=== PATIENT | female | born 1935 | race American Indian/Alaskan Native ===

== ENCOUNTER 2022-10-27 11:05 | Outpatient (CLI) | payer MEDICARE, MEDICAID, SELFPAY | END 2022-10-27 11:06 | disposition home or self-care (01) | LOC: AMB 10-31 10:29 | PROVIDERS: Visit Provider Emergency Medicine Emergency Medical Services | DX: R41.82 Altered mental status, unspecified (principal); R11.2 Nausea with vomiting, unspecified | CPT/HCPCS: A0425; A0427 ==

== ENCOUNTER 2022-10-27 11:28 | Observation (INO) | payer MEDICARE, MEDICAID, SELFPAY ==
[2022-10-27] VITALS (17 sets, daily range): BP systolic 132–160; BP diastolic 52–94; PULSE 73–90; RESP 18–21; TEMP 36.2–36.6; O2SAT 94–100; BMI 23.1; BMI 23.9
--- NOTE | 2022-10-27 11:40 | CRLHL7_ITS ---
For Patients: As a result of the Century Cures Act, medical imaging exams and procedure reports are released immediately into your electronic medical record. You may view this report before your referring provider. If you have questions, please contact your health care provider. INDICATION: Fall. Syncope. COMPARISON: None available. TECHNIQUE: Noncontrast CT head. FINDINGS: Moderate generalized volume loss. Patchy low-attenuation change within the white matter consistent with chronic deep white matter small ischemic changes. No acute intracranial hemorrhage, acute infarct, mass effect, or fracture. No midline shift. Compensatory mild dilatation of ventricular system. Normal calvarium and skull base. Visualized paranasal sinuses and mastoid air cells are clear. Intracranial carotid artery calcifications. Normal orbits bilaterally. IMPRESSION: 1. No acute intracranial abnormality. 2. Moderate generalized volume loss. Chronic deep white matter small vessel ischemic changes Please note that all CT scans at this facility use dose modulation, iterative reconstruction, and/or weight-based dosing when appropriate to reduce radiation dose to as low as reasonably achievable. Dictated by Carlos Lyn MD @ 10/27/2022 1:33:20 PM (Electronically Signed)
--- NOTE | 2022-10-27 11:41 | CRLHL7_ITS ---
For Patients: As a result of the Cures Act, medical imaging exams and procedure reports are released immediately into your electronic medical record. You may view this report before your referring provider. If you have questions, please contact your health care provider. INDICATION: Fall, syncope INDICATION: Syncope, fall. TECHNIQUE: Chest 2 views. COMPARISON: None FINDINGS: Cardiovascular and mediastinum: Heart size and vasculature are normal in caliber and appearance. Mediastinum is within normal limits. Lungs and pleural spaces: Lungs are clear. No sign of infiltrate or mass. No sign of pleural effusion. No pneumothorax. 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 IMPRESSION: Lungs are clear. Dictated by Rigo Cortez MD @ 10/27/2022 1:23:22 PM Dictated by: Rigo Cortez MD @ 10/27/2022 13:23:31 (Electronically Signed)
--- NOTE | 2022-10-27 11:44 | ED_ITS ---
HPI - General Adult General Chief complaint: Nausea/Vomiting Stated complaint: nausea,vomiting Time Seen by Provider: 10/27/22 11:31 Source: patient, family, EMS and RN notes reviewed Mode of arrival: EMS Limitations: no limitations History of Present Illness HPI narrative: Patient is an 87-year-old woman brought in by EMS. She is in town for her daughter's wedding. EMS reported that it was a called out as a stroke, they worked sure what the initial symptoms were, but they arrive several minutes after the 911 call and did not find any focal neurologic symptoms. Her complaint to them was of nausea and some vomiting this morning and feeling fatigued, that is what she complains of to me as well. She says that she just feels generally weak, she denies any focal weakness. Her daughter arrived a little bit later and said that she had what seemed to be a syncopal episode, was briefly unresponsive it on when she woke up her daughter said that her speech seemed a little slurred briefly, but she was able to say where she was and the president [place]. Does not sound like there were any prolonged focal neurologic symptoms. Her daughter does report a remote history of TIA, looking through her medications she has diabetes, high blood pressure, I do not see an anticoagulant. She denies any pain, no headache or neck pain. Her does say that she had a fall yesterday although no direct head injury. She denies chest pain, she says she has had a cough for about a month. No shortness of breath, no fevers. No abdominal pain, diarrhea, black or bloody stools. She reports ongoing nausea, somewhat improved by Zofran given by EMS. No further vomiting. Related Data Home Medications Medication Instructions Recorded Confirmed amlodipine 5 mg tablet 5 mg PO DAILY 10/27/22 10/27/22 aspirin 81 mg tablet,delayed 81 mg PO HS 10/27/22 10/27/22 release benzonatate 100 mg capsule 100 mg PO 3XD PRN cough 10/27/22 10/27/22 cetirizine 10 mg tablet 10 mg PO DAILY 10/27/22 10/27/22 cholecalciferol (vitamin D3) 50 50 mcg PO DAILY 10/27/22 10/27/22 mcg (2,000 unit) capsule (Vitamin D3) cyanocobalamin (vitamin B-12) 1,000 mcg PO DAILY 10/27/22 10/27/22 1,000 mcg tablet diphenhydramine 25 2 tab PO QHS 10/27/22 10/27/22 mg-acetaminophen 500 mg tablet (Tylenol PM Extra Strength) diphenhydramine HCl 25 mg tablet 50 mg PO HS 10/27/22 10/27/22 (Allergy) fluticasone 250 mcg-salmeterol 50 1 inh inhalation HS 10/27/22 10/27/22 mcg/dose blistr powdr for inhalation (Advair Diskus) furosemide 20 mg tablet 10 mg PO DAILY 10/27/22 10/27/22 gabapentin 300 mg capsule 600 mg PO BID 10/27/22 10/27/22 ibuprofen 400 mg tablet 400 mg PO 3XD PRN pain 10/27/22 10/27/22 levothyroxine 88 mcg tablet 88 mcg PO DAILY 10/27/22 10/27/22 lisinopril 10 1 tab PO DAILY 10/27/22 10/27/22 mg-hydrochlorothiazide 12.5 mg tablet loperamide 2 mg capsule 2 mg PO QID PRN diarrhea 10/27/22 10/27/22 metformin 500 mg tablet 500 mg PO BIDWM 10/27/22 10/27/22 omeprazole 20 mg capsule,delayed 20 mg PO DAILY 10/27/22 10/27/22 release Allergies Allergy/AdvReac Type Severity Reaction Status Date / Time No Known Drug Allergies Allergy Verified 10/27/22 11:35 Review of Systems Status of ROS: Reports: 10 or more systems reviewed and unremarkable except as noted in History and below [facility] Medical History Hypothyroidism ?E03.9 - Hypothyroidism, unspecified (ICD-10) Diabetes ?E11.9 - Type 2 diabetes mellitus without complications (ICD-10) Hypertension ?I10 - Essential (primary) hypertension (ICD-10) Social History What is your current living situation?: I presently have a place to live Problems where you live: no known problems Problems where you live details: N/A In the past 12 months, utilities in danger of being shut off: no In the past 12 mos, have been you worried that your food would run out before you had money to buy more?: never true In the past 12 mos, the food you bought just didn't last and you didn't have money to buy more?: never true How often does anyone, including family, friends and others, physically hurt you : never How often does anyone, including family, friends and others, insult or talk down to you: never How often does anyone, including family, friends and others, threaten you with harm: never How often does anyone, including family, friends and others, scream or curse at you: never Exam Narrative: Exam Narrative: Vital signs as noted above. In general, an alert, nontoxic elderly woman, looks somewhat fatigued, breathing easily. Hard of hearing. Head: Normocephalic, atraumatic. Eyes: Pupils are equal reactive. Extraocular movements are full. Conjunctivae are normal. ENT: Mucous membranes are a little dry. Throat is normal. Neck: Supple without lymphadenopathy. Heart: Regular rate and rhythm. No murmur or rub. Lungs: Mostly clear, a few scattered crackles in the right base. No increased work of breathing. No wheezes. Abdomen: Soft and nontender. No organomegaly. Extremities: Well perfused. No edema. No calf tenderness. Pulses intact. Neurologic: Patient is alert and oriented to person and place. Speech is fluent. Face is symmetric. Moves all extremities equally. Affect: Normal. Skin: Warm and dry. Well perfused. Const: Vital Signs, click to edit/add: Vital Signs - 24 hr 10/27/22 11:31 10/27/22 11:42 10/27/22 12:02 Temperature 97.5 F L Pulse Rate 74 Pulse Rate [Right Pulse Oximeter] 73 Respiratory Rate 21 Blood Pressure 156/62 H Blood Pressure [Ri ght Upper Arm] 147/62 H Pulse Oximetry 99 99 98 Oxygen Delivery Me thod Room Air 10/27/22 12:03 10/27/22 12:15 10/27/22 12:45 Temperature Pulse Rate 76 76 78 Pulse Rate [Right Pulse Oximeter] Respiratory Rate Blood Pressure 134/57 L Blood Pressure [Ri ght Upper Arm] Pulse Oximetry 99 96 98 Oxygen Delivery Me thod 10/27/22 12:46 10/27/22 13:00 10/27/22 13:02 Temperature Pulse Rate 74 81 80 Pulse Rate [Right Pulse Oximeter] Respiratory Rate Blood Pressure 145/94 H Blood Pressure [Ri ght Upper Arm] Pulse Oximetry 100 100 98 Oxygen Delivery Me thod 10/27/22 13:15 10/27/22 13:30 10/27/22 13:32 Temperature Pulse Rate 78 80 Pulse Rate [Right Pulse Oximeter] Respiratory Rate Blood Pressure 158/66 H Blood Pressure [Ri ght Upper Arm] Pulse Oximetry 100 99 Oxygen Delivery Me thod 10/27/22 13:36 10/27/22 13:45 Temperature Pulse Rate 79 81 Pulse Rate [Right Pulse Oximeter] Respiratory Rate Blood Pressure 160/67 H Blood Pressure [Ri ght Upper Arm] Pulse Oximetry 99 94 Oxygen Delivery Me thod Documenting provider has reviewed patient's vital signs: yes Course Course Hospital Course: Following initial evaluation, patient had an EKG, which shows by my review normal sinus rhythm, ventricular rate of 74. Normal ST segments, normal T- waves. Overall, symptoms do not sound suggestive of seizure or stroke, it does sound like she probably had a syncopal episode. Diagnostic considerations include acute coronary syndrome, dehydration, ketoacidosis, metabolic derangement, complications of possible head injury, infection. Will give a L of normal saline, labs are pending at this time. Hemodynamically stable, exam is benign. Labs are most notable for a hemoglobin of 8.9, she does not nor baseline but says she has never been told she is anemic. No evidence of microcytosis etcetera, pattern fits more with an acute blood loss. White blood cell count is mildly low O2 at 3, but platelets are normal. Her D-dimer is normal for age at 0.69. Sodium was markedly low at 122, CO2 is 17. Lactate mildly elevated at 2.1. BUN and creatinine are normal. LFTs are unremarkable, CRP less than 0.5. TSH is significantly low and a free T4 is pending. Troponin is 0 and COVID is negative. I had initially ordered a L normal saline, labs suggest she may be somewhat dry. Given symptoms of weakness, nausea, vomiting, I did order for 3% hypertonic saline, 100 mL. I did do a rectal exam, there is light brown stool, fecal occult testing is pending. Coags and type and screen have been added on. She has been hemodynamically stable, no vomiting while here. Neurologically normal. Plan is admission to the hospital for correction of her sodium, trend hemoglobins, hydration. Vital Signs Vital signs: Initial Vital Signs Temperature 97.5 F L 10/27/22 11:31 Temperature Source Temporal Artery Scan 10/27/22 11:31 Pulse Rate 73 10/27/22 11:31 Pulse Rhythm Regular 10/27/22 11:31 Pulse Strength 3+ Normal 10/27/22 11:31 Respiratory Rate 21 10/27/22 11:31 Blood Pressure 147/62 H 10/27/22 11:31 Blood Pressure Mean 90 10/27/22 11:31 Blood Pressure Position Supine 10/27/22 11:31 Pulse Oximetry 99 10/27/22 11:31 Oxygen Delivery Method Room Air 10/27/22 11:31 Vital Signs Temperature 97.5 F L 10/27/22 11:31 Pulse Rate 73 10/27/22 11:31 Respiratory Rate 21 10/27/22 11:31 Blood Pressure 147/62 H 10/27/22 11:31 Pulse Oximetry 99 10/27/22 11:31 Oxygen Delivery Method Room Air 10/27/22 11:31 Temperature 97.2 F L 10/27/22 14:14 Pulse Rate 88 10/27/22 14:14 Respiratory Rate 18 10/27/22 14:14 Blood Pressure 134/52 L 10/27/22 14:14 Pulse Oximetry 97 10/27/22 14:14 Oxygen Delivery Method Room Air 10/27/22 14:14 Medical Decision Making Lab Data Labs: Lab Results 10/27/22 10/27/22 10/27/22 Range/Units 11:41 11:42 11:56 WBC 3.09 L (4.50-11.00) K/uL RBC 2.91 L (4.00-5.20) m/uL Hgb 8.9 L (12.0-16.0) gm/dL Hct 27.1 L (33.0-51.0) % MCV 93 (80-100) fL MCH 31 (26-34) pg MCHC 33 (32-36) gm/dL RDW Coeff of Noah 15.4 (11.5-15.5) % Plt Count 284 (140-440) K/uL Neut % (Auto) 54.1 (42.0-72.0) % Lymph % (Auto) 29.1 (20-44) % [place] % (Auto) 9.7 (0.0-11.0) % Eos % (Auto) 5.8 (0.0-7.0) % Baso % (Auto) 1.0 (0.0-3.0) % Neut # (Auto) 1.70 (1.7-7.0) K/uL Lymph # (Auto) 0.90 (0.90-2.90) K/uL [place] # (Auto) 0.30 (0.00-0.90) K/UL Eos # (Auto) 0.20 (0.00-0.50) K/uL Baso # (Auto) 0.00 (0.00-0.30) K/uL Abs Immat Gran (auto) 0.00 (0.00-0.30) K/uL Imm/Tot Granulo (auto) 0.3 % INR 0.95 (0.91-1.10) APTT 27 (23-33) Seconds D-Dimer Quant (PE/DVT) 0.69 H (0.00-0.50) ug/ml Sodium 122 L* (135-149) mmol/L Potassium 4.8 (3.6-5.1) mmol/L Chloride 95 L (96-114) mmol/L Carbon Dioxide 17 L (20-32) mmol/L BUN 21 (7-30) mg/dL Creatinine 0.9 (0.5-1.5) mg/dL Estimated Creat Clear 38.50 Estimated GFR 63 ml/min Glucose 117 H (60-115) mg/dL Lactate 2.1 H (0.5-1.9) mmol/L Calcium 9.0 (8.4-10.6) mg/dL Total Bilirubin 0.3 (0.1-1.5) mg/dL Direct Bilirubin 0.0 (0.0-0.5) mg/dL AST 27 (12-35) U/L ALT 19 (4-35) U/L Alkaline Phosphatase 63 (40-150) U/L C-Reactive Protein < 0.5 L (0.5-1.0) mg/dL Total Protein 7.2 (6.0-8.3) g/dL Albumin 3.9 (3.3-5.0) g/dL TSH < 0.015 L (0.270-4.200) uIU/mL Free T4 2.31 H (0.70-1.85) ng/dL Urine Color (Yellow) Urine Appearance (Clear) Urine pH (5.0-8.5) Ur Specific [place] (1.000-1.030) Urine Protein (Negative) Urine Glucose (UA) (Negative) Urine Ketones (Negative) Urine Blood (Negative) Urine Nitrite (Negative) Urine Bilirubin (Negative) Urine Urobilinogen (0.2-1.0) Ur Leukocyte Esterase (Negative) Urine RBC (0-2) Urine WBC (0-5) Ur Squamous Epith Cells (None-Few) Amorphous Sediment (None) Urine Bacteria (None) Stool Occult Blood (Negative) SARS-CoV-2 (PCR) Negative SARS-CoV-2 (Negative) POC Troponin I 0.00 L (0.01-0.04) ng/ml Blood Type Antibody Screen 10/27/22 Range/Units 13:32 WBC (4.50-11.00) K/uL RBC (4.00-5.20) m/uL Hgb (12.0-16.0) gm/dL Hct (33.0-51.0) % MCV (80-100) fL MCH (26-34) pg MCHC (32-36) gm/dL RDW Coeff of Noah (11.5-15.5) % Plt Count (140-440) K/uL Neut % (Auto) (42.0-72.0) % Lymph % (Auto) (20-44) % [place] % (Auto) (0.0-11.0) % Eos % (Auto) (0.0-7.0) % Baso % (Auto) (0.0-3.0) % Neut # (Auto) (1.7-7.0) K/uL Lymph # (Auto) (0.90-2.90) K/uL [place] # (Auto) (0.00-0.90) K/UL Eos # (Auto) (0.00-0.50) K/uL Baso # (Auto) (0.00-0.30) K/uL Abs Immat Gran (auto) (0.00-0.30) K/uL Imm/Tot Granulo (auto) % INR (0.91-1.10) APTT (23-33) Seconds D-Dimer Quant (PE/DVT) (0.00-0.50) ug/ml Sodium (135-149) mmol/L Potassium (3.6-5.1) mmol/L Chloride (96-114) mmol/L Carbon Dioxide (20-32) mmol/L BUN (7-30) mg/dL Creatinine (0.5-1.5) mg/dL Estimated Creat Clear Estimated GFR ml/min Glucose (60-115) mg/dL Lactate 1.5 (0.5-1.9) mmol/L Calcium (8.4-10.6) mg/dL Total Bilirubin (0.1-1.5) mg/dL Direct Bilirubin (0.0-0.5) mg/dL AST (12-35) U/L ALT (4-35) U/L Alkaline Phosphatase (40-150) U/L C-Reactive Protein (0.5-1.0) mg/dL Total Protein (6.0-8.3) g/dL Albumin (3.3-5.0) g/dL TSH (0.270-4.200) uIU/mL Free T4 (0.70-1.85) ng/dL Urine Color Yellow (Yellow) Urine Appearance Clear (Clear) Urine pH 7.0 (5.0-8.5) Ur Specific [place] 1.015 (1.000-1.030) Urine Protein Negative (Negative) Urine Glucose (UA) Negative (Negative) Urine Ketones Negative (Negative) Urine Blood Negative (Negative) Urine Nitrite Negative (Negative) Urine Bilirubin Negative (Negative) Urine Urobilinogen 0.2 (0.2-1.0) Ur Leukocyte Esterase Negative (Negative) Urine RBC 0-2 (0-2) Urine WBC 0-2 (0-5) Ur Squamous Epith Cells None (None-Few) Amorphous Sediment Few A (None) Urine Bacteria Few A (None) Stool Occult Blood Negative (Negative) SARS-CoV-2 (PCR) (Negative) POC Troponin I (0.01-0.04) ng/ml Blood Type A Positive Antibody Screen NEGATIVE Discharge Plan Discharge Patient Disposition: Admitted As Inpatient Discharge Diet: Regular Discharge Comment: Pt being admitted to room 251 at [facility]
[2022-10-27 12:03] LABS: Lactate Sepsis w/Reflex* 2.1 mmol/L (0.5-1.9)
[2022-10-27 12:06] LABS: Eosinophils Percent Auto 5.8 % (0.0-7.0); Hematocrit 27.1 % (33.0-51.0); Hemoglobin* 8.9 gm/dL (12.0-16.0); Immature Granulocytes Pct Auto 0.3 %; Lymphocytes Percent Auto 29.1 % (20-44); Mean Corpuscular HGB Conc 33 gm/dL (32-36); Mean Corpuscular Hemoglobin 31 pg (26-34); Mean Corpuscular Volume 93 fL (80-100); Monocytes Percent Auto 9.7 % (0.0-11.0); Neutrophils Percent Auto 54.1 % (42.0-72.0); Platelet Count* 284 K/uL (140-440); RDW Coefficient of Variation % 15.4 % (11.5-15.5); Red Blood Count 2.91 m/uL (4.00-5.20); White Blood Count* 3.09 K/uL (4.50-11.00)
[2022-10-27] MEDS: 0.9 % SODIUM CHLORIDE 1000 ml 1,000 ML IV (12:12)
[2022-10-27 12:15] LABS: Slide Review Reflex No
[2022-10-27 12:24] LABS: Albumin* 3.9 g/dL (3.3-5.0); Chloride* 95 mmol/L (96-114)
[2022-10-27 12:25] LABS: Potassium* 4.8 mmol/L (3.6-5.1)
[2022-10-27 12:25] LABS: SARS PCR* Negative SARS-CoV-2 (Negative)
[2022-10-27 12:26] LABS: Creatinine* 0.9 mg/dL (0.5-1.5); Estimated Glomerular Filt Rate 63 ml/min
[2022-10-27 12:27] LABS: Alanine Aminotransferase* 19 U/L (4-35); Alkaline Phosphatase* 63 U/L (40-150); Aspartate Amino Transferase* 27 U/L (12-35); Bilirubin Total* 0.3 mg/dL (0.1-1.5); Blood Urea Nitrogen* 21 mg/dL (7-30); Carbon Dioxide* 17 mmol/L (20-32); D Dimer Quantitative* 0.69 ug/ml (0.00-0.50); Total Protein* 7.2 g/dL (6.0-8.3)
[2022-10-27 12:28] LABS: Glucose* 117 mg/dL (60-115)
[2022-10-27 12:32] LABS: C Reactive Protein* < 0.5 mg/dL (0.5-1.0)
[2022-10-27 12:34] LABS: Sodium* 122 mmol/L (135-149)
[2022-10-27 13:01] LABS: TSH With Reflex to FT4* < 0.015 uIU/mL (0.270-4.200)
[2022-10-27 13:26] LABS: Free T4 Free Thyroxine* 2.31 ng/dL (0.70-1.85)
[2022-10-27 13:31] LABS: INR 0.95 (0.91-1.10); Prothrombin Time 13.2 Seconds
[2022-10-27 13:32] LABS: Partial Thromboplastin Time* 27 Seconds (23-33)
[2022-10-27] MEDS: 3 % SODIUM CHLORIDE 500 ml 100 ML IV (13:37)
[2022-10-27 13:43] LABS: Lactate Sepsis 2 Hour 1.5 mmol/L (0.5-1.9)
[2022-10-27 13:44] LABS: Appearance Urine Clear (Clear); Bilirubin Urine Negative (Negative); Blood Urine Negative (Negative); Color Urine Yellow (Yellow); Glucose Urine Negative (Negative); Ketones Urine Negative (Negative); Leukocyte Esterase Urine Negative (Negative); Nitrite Urine Negative (Negative); Protein Urine Negative (Negative); Specific Gravity Urine 1.015 (1.000-1.030); Urobilinogen Urine 0.2 (0.2-1.0)
[2022-10-27 13:46] LABS: Fecal Occult Blood* Negative (Negative)
[2022-10-27 13:53] LABS: Amorphous Sediment Urine Few; Bacteria Urine Few; RBC Urine 0-2 (0-2); WBC Urine 0-2 (0-5)
[2022-10-27 15:05] LABS: Sodium* 127 mmol/L (135-149)
[2022-10-27 16:57] LABS: Iron* 91 ug/dL (37-170)
[2022-10-27 17:01] LABS: Hemoglobin A1C* 6.39 % (0-5.6)
[2022-10-27 17:06] LABS: Percent Iron Saturation 19 % (20-50); Total Iron Binding Capacity 475 ug/dL (265-497)
[2022-10-27] MEDS: METFORMIN 500 MG TABLET PO (17:38)
--- NOTE | 2022-10-27 18:16 | P.IMHP_ITS ---
Hospitalist- H&P: HPI History of Present Illness Date Seen: 10/27/22 Chief complaint: nausea,vomiting Narrative: Mady Jimenez is a 87 year old female admitted through the emergency department after an episode this morning with nausea and vomiting. Patient reports she was in her usual state of health yesterday. When she awoke this morning she reported that she was doing fine except for she had a poor night of sleep and felt tired. She had breakfast of asencio and eggs and grapefruit and shortly after that she felt nausea and began to vomit. She had nonbloody emesis. With this she felt profoundly weak. She may have had a syncopal episode or of very brief period of unresponsiveness. When she was aroused by her daughter she may have been slurring her speech a bit. 911 was called and she is brought to our emergency room. There the evaluation showed no significan t neurologic deficits and no focal deficits. She has a history of a previous TIA or stroke many years ago. She tells me at the time she had trouble speaking and some weakness in her left side. Symptoms have apparently entirely resolved. She has chronic weakness and poor gait. She walks with a walker or she is going any distance she goes in a wheelchair. She apparently did have a fall yesterday without a head injury. She reports no recent illness but she does have a cough that is been going on for 1-2 months. She had a COVID infection 1-2 months ago and since then has had a persistent cough. She has not been short of breath or had chest pain. She has had no fever. She reports she has been able to eat and drink normally up until this morning. She was found to have anemia with a hemoglobin of 8.9. She was told by her primary doctor about a year ago that she had iron deficiency and needed to increase the iron in her diet. She is not aware of any bleeding. She has not had melanotic or bloody stools. She thinks she had a colonoscopy about 5 years ago and it was normal. She was found to have hyponatremia. She has never known to have hyponatremia in the past. She is on hydrochlorothiazide for blood pressure. Review of Systems Narrative: Review of systems is unremarkable except as noted above [facility] Medical History (Updated 10/27/22 @ 18:54 by Ludwig Simmons MD) Anemia ?D64.9 - Anemia, unspecified (ICD-10) Smoking ?F17.200 - Nicotine dependence, unspecified, uncomplicated (ICD-10) Urinary incontinence ?R32 - Unspecified urinary incontinence (ICD-10) Cerebrovascular disease ?I67.9 - Cerebrovascular disease, unspecified (ICD-10) Hypothyroidism ?E03.9 - Hypothyroidism, unspecified (ICD-10) Diabetes ?E11.9 - Type 2 diabetes mellitus without complications (ICD-10) Hypertension ?I10 - Essential (primary) hypertension (ICD-10) Surgical History (Updated 10/27/22 @ 18:45 by Ludwig Simmons MD) History of cholecystectomy ?Z90.49 - Acquired absence of other specified parts of digestive tract (ICD- 10) History of colonoscopy ?Z98.890 - Other specified postprocedural states (ICD-10) Family History (Updated 10/27/22 @ 18:46 by Ludwig Simmons MD) Daughter Thyroid disease Mother Heart disease Social History (Updated 10/27/22 @ 18:48 by Ludwig Simmons MD) Narrative: Patient lives in [facility], with her . She is here for her daughter's wedding today. She smokes about 4 cigarettes a day. She does not drink alcohol. Her daughter, Frieda Brown, of [facility] is her healthcare power of senior trial attorney. Code status is DNR. What is your current living situation?: I presently have a place to live Problems where you live: no known problems Problems where you live details: N/A In the past 12 months, utilities in danger of being shut off: no In the past 12 mos, have been you worried that your food would run out before you had money to buy more?: never true In the past 12 mos, the food you bought just didn't last and you didn't have money to buy more?: never true How often does anyone, including family, friends and others, physically hurt you : never How often does anyone, including family, friends and others, insult or talk down to you: never How often does anyone, including family, friends and others, threaten you with harm: never How often does anyone, including family, friends and others, scream or curse at you: never Meds Home Medications and Allergies Home Medications Medication Instructions Recorded Confirmed Type amlodipine 5 mg tablet 5 mg PO DAILY 10/27/22 10/27/22 History aspirin 81 mg tablet,delayed 81 mg PO HS 10/27/22 10/27/22 History release benzonatate 100 mg capsule 100 mg PO 3XD PRN cough 10/27/22 10/27/22 History cetirizine 10 mg tablet 10 mg PO DAILY 10/27/22 10/27/22 History cholecalciferol (vitamin D3) 50 50 mcg PO DAILY 10/27/22 10/27/22 History mcg (2,000 unit) capsule (Vitamin D3) cyanocobalamin (vitamin B-12) 1,000 mcg PO DAILY 10/27/22 10/27/22 History 1,000 mcg tablet diphenhydramine 25 2 tab PO QHS 10/27/22 10/27/22 History mg-acetaminophen 500 mg tablet (Tylenol PM Extra Strength) diphenhydramine HCl 25 mg tablet 50 mg PO HS 10/27/22 10/27/22 History (Allergy) fluticasone 250 mcg-salmeterol 50 1 inh inhalation HS 10/27/22 10/27/22 History mcg/dose blistr powdr for inhalation (Advair Diskus) furosemide 20 mg tablet 10 mg PO DAILY 10/27/22 10/27/22 History gabapentin 300 mg capsule 600 mg PO BID 10/27/22 10/27/22 History ibuprofen 400 mg tablet 400 mg PO 3XD PRN pain 10/27/22 10/27/22 History levothyroxine 88 mcg tablet 88 mcg PO DAILY 10/27/22 10/27/22 History lisinopril 10 1 tab PO DAILY 10/27/22 10/27/22 History mg-hydrochlorothiazide 12.5 mg tablet loperamide 2 mg capsule 2 mg PO QID PRN diarrhea 10/27/22 10/27/22 History metformin 500 mg tablet 500 mg PO BIDWM 10/27/22 10/27/22 History omeprazole 20 mg capsule,delayed 20 mg PO DAILY 10/27/22 10/27/22 History release Allergies Allergy/AdvReac Type Severity Reaction Status Date / Time No Known Drug Allergies Allergy Verified 10/27/22 11:35 Exam Narrative: Exam Narrative: She is alert and appears in no distress. She is hard of hearing. Speech is normal. There is no slurring. Head is without evidence of trauma. Eyes are normal. Extraocular movements are full. Visual diaz are intact. No facial asymmetry. Oropharynx is normal. Neck is supple without mass or adenopathy. Respirations with decreased breath sounds but otherwise clear to auscultation without wheezing rales or rhonchi. Cardiovascular: S1, S2, regular rate and rhythm. No murmur gallop or rub. Abdomen: Bowel sounds active. Abdomen is soft without tenderness or mass. External genitalia normal. Strength testing shows upper and lower extremity strength is symmetric and full bilaterally including shoulder flexion extension, elbow flexion extension, wrist flexion and extension, finger extension, hip flexion, knee flexion extension, ankle dorsiflexion and plantar flexion and great toe dorsiflexion. [id number] is accurate. Peripheral pulses are normal. No significant edema. No rash Per emergency department report her stool is normal brown and guaiac test is negative Const: Vital Signs, click to edit/add: Vital Signs - 24 hr 10/27/22 11:31 10/27/22 11:42 10/27/22 12:02 Temperature 97.5 F L Pulse Rate 74 Pulse Rate [Left R adial] Pulse Rate [Right Pulse Oximeter] 73 Respiratory Rate 21 Blood Pressure 156/62 H Blood Pressure [Le ft Arm] Blood Pressure [Ri ght Upper Arm] 147/62 H Pulse Oximetry 99 99 [address] [facility] 10/27/22 12:03 10/27/22 12:15 10/27/22 12:45 Temperature Pulse Rate 76 76 78 Pulse Rate [Left R adial] Pulse Rate [Right Pulse Oximeter] Respiratory Rate Blood Pressure 134/57 L Blood Pressure [Le ft Arm] Blood Pressure [Ri ght Upper Arm] Pulse Oximetry 99 96 [address] [facility] 10/27/22 12:46 10/27/22 13:00 10/27/22 13:02 Temperature Pulse Rate 74 81 80 Pulse Rate [Left R adial] Pulse Rate [Right Pulse Oximeter] Respiratory Rate Blood Pressure 145/94 H Blood Pressure [Le ft Arm] Blood Pressure [Ri ght Upper Arm] Pulse Oximetry 100 100 [address] [facility] 10/27/22 13:15 10/27/22 13:30 10/27/22 13:32 Temperature Pulse Rate 78 80 Pulse Rate [Left R adial] Pulse Rate [Right Pulse Oximeter] Respiratory Rate Blood Pressure 158/66 H Blood Pressure [Le ft Arm] Blood Pressure [Ri ght Upper Arm] Pulse Oximetry 100 99 Oxygen Delivery Me thod 10/27/22 13:36 10/27/22 13:45 10/27/22 14:14 Temperature 97.2 F L Pulse Rate 79 81 Pulse Rate [Left R adial] 88 Pulse Rate [Right Pulse Oximeter] Respiratory Rate 18 Blood Pressure 160/67 H Blood Pressure [Le ft Arm] 134/52 L Blood Pressure [Ri ght Upper Arm] Pulse Oximetry 99 94 [address] [facility] Documenting provider has reviewed patient's vital signs: yes Hospitalist - H&P: Result Labs Labs: Short CBC 10/27/22 Range/Units 11:56 WBC 3.09 L (4.50-11.00) K/uL Hgb 8.9 L (12.0-16.0) gm/dL Hct 27.1 L (33.0-51.0) % Plt Count 284 (140-440) K/uL BMP 10/27/22 10/27/22 11:56 14:48 Sodium 122 L* 127 L Potassium 4.8 Chloride 95 L Carbon Dioxide 17 L BUN 21 Creatinine 0.9 Glucose 117 H Calcium 9.0 Liver Function 10/27/22 Range/Units 11:56 Total Bilirubin 0.3 (0.1-1.5) mg/dL Direct Bilirubin 0.0 (0.0-0.5) mg/dL AST 27 (12-35) U/L ALT 19 (4-35) U/L Alkaline Phosphatase 63 (40-150) U/L Albumin 3.9 (3.3-5.0) g/dL Urine 10/27/22 Range/Units 13:32 Urine Color Yellow (Yellow) Urine Appearance Clear (Clear) Urine pH 7.0 (5.0-8.5) Ur Specific [place] 1.015 (1.000-1.030) Urine Protein Negative (Negative) Urine Glucose (UA) Negative (Negative) Imaging Chest x-ray: Attestation: I have reviewed the pertinent imaging results. (Normal chest x-ray) CT scan - head: Radiologist's impression: NDICATION: Fall. Syncope. COMPARISON: None available. TECHNIQUE: Noncontrast CT head. FINDINGS: Moderate generalized volume loss. Patchy low-attenuation change within the white matter consistent with chronic deep white matter small ischemic changes. No acute intracranial hemorrhage, acute infarct, mass effect, or fracture. No midline shift. Compensatory mild dilatation of ventricular system. Normal calvarium and skull base. Visualized paranasal sinuses and mastoid air cells are clear. Intracranial carotid artery calcifications. Normal orbits bilaterally. IMPRESSION: 1. No acute intracranial abnormality. 2. Moderate generalized volume loss. Chronic deep white matter small vessel ischemic changes Assessment and Plan Assessment and plan (1) Vomiting: Problem comment: Cause for this is unknown. Symptoms have resolved after treatment by paramedics. No persistent nausea. No abdominal pain or tenderness. Status: Acute (2) Hyponatremia: Problem comment: Of unknown chronicity. May be worse today due to vomiting. Hydrochlorothiazide likely contributing as well. Status: Acute (3) Hypothyroidism: Problem comment: Appears to have excess replacement of levothyroxine with an elevated free T4 and suppressed TSH Status: Acute (4) Diabetes: Status: Acute (5) Hypertension: Status: Acute (6) Anemia: Problem comment: Normocytic anemia with borderline low iron saturation of 19%. Also neutropenia. Cause uncertain. Status: Acute Plan Patient is admitted the hospital for management of the above problems. Will initiate and normal diet to see if she can tolerate this without recurrent nausea vomiting. Continue to assess for any cause of vomiting. She has received hypertonic saline and her sodium has corrected significantly today. Will stop any further attempts at correcting her sodium but will place her on a fluid restriction and stop her hydrochlorothiazide. I am going to replace her hydrochlorothiazide with furosemide, increasing her home dose from 10-20 mg daily to manage volume and edema. Trend her anemia to determine whether there is an acute evidence of blood loss. If not I think she can be safely evaluated by her primary care doctor. Based on the history she gives this may have already been done in the recent past. Evaluate functional status in light of her recent fall and poor functional status on a chronic basis. Anticipate discharge to home with her if she can safely walk with a walker. Total time spent today is 80 minutes, 60 minutes in coordination of care discussing with patient, and other providers ongoing evaluation management of hyponatremia, vomiting, anemia
[2022-10-27 20:01] LABS: Hemoglobin* 8.4 gm/dL (12.0-16.0)
[2022-10-27 20:14] LABS: Sodium* 128 mmol/L (135-149)
[2022-10-27] MEDS: SODIUM CHLORIDE 0.9 % (FLUSH) 10 ML SYRINGE 5 ML IVF (20:54)
[2022-10-27] MEDS: ENOXAPARIN 30 MG/0.3ML INJ SUBCUT (20:54)
[2022-10-27] MEDS: GABAPENTIN 300 MG CAPSULE 600 MG PO (20:54)
[2022-10-27] MEDS: MELATONIN 3 MG TABLET PO (20:54)
[2022-10-28 03:00] VITALS: BP 105/53; PULSE 73; RESP 18; TEMP 36.6; O2SAT 93
--- NOTE | 2022-10-28 06:39 | PC.NURSE ---
Shift note: Pt is alert and oriented. Has been in bed throughout the shift. No neurologic symptoms noted. Denied any pain, SOB and N/V.
[2022-10-28 06:49] LABS: Basophils Percent Auto 0.8 % (0.0-3.0); Eosinophils Percent Auto 6.5 % (0.0-7.0); Hematocrit 23.8 % (33.0-51.0); Immature Granulocytes Pct Auto 0.4 %; Lymphocytes Percent Auto 40.7 % (20-44); Mean Corpuscular HGB Conc 33 gm/dL (32-36); Mean Corpuscular Hemoglobin 31 pg (26-34); Mean Corpuscular Volume 94 fL (80-100); Monocytes Percent Auto 13.7 % (0.0-11.0); Neutrophils Percent Auto 37.9 % (42.0-72.0); Platelet Count* 273 K/uL (140-440); RDW Coefficient of Variation % 15.7 % (11.5-15.5); Red Blood Count 2.52 m/uL (4.00-5.20); White Blood Count* 2.48 K/uL (4.50-11.00)
[2022-10-28 07:00] VITALS: BP 150/66; PULSE 73; RESP 18; TEMP 36.5; O2SAT 93
[2022-10-28] MEDS: OMEPRAZOLE 20 MG CAPSULE DR PO (07:05)
[2022-10-28 07:20] LABS: Chloride* 102 mmol/L (96-114); Potassium* 4.2 mmol/L (3.6-5.1); Slide Review Reflex Yes; Sodium* 129 mmol/L (135-149)
[2022-10-28 07:21] LABS: Hemoglobin* 7.8 gm/dL (12.0-16.0)
[2022-10-28 07:22] LABS: Creatinine* 0.8 mg/dL (0.5-1.5); Estimated Glomerular Filt Rate 72 ml/min
[2022-10-28 07:23] LABS: Blood Urea Nitrogen* 17 mg/dL (7-30); Calcium* 8.9 mg/dL (8.4-10.6); Carbon Dioxide* 22 mmol/L (20-32); Glucose* 91 mg/dL (60-115)
[2022-10-28] MEDS: CYANOCOBALAMIN (VITAMIN B-12) 500 MCG TABLET 1000 MCG PO (07:34)
[2022-10-28] MEDS: METFORMIN 500 MG TABLET PO (07:35)
[2022-10-28] MEDS: FUROSEMIDE 20 MG TABLET PO (07:35)
[2022-10-28] MEDS: AMLODIPINE 5 MG TABLET PO (07:35)
[2022-10-28] MEDS: GABAPENTIN 300 MG CAPSULE 600 MG PO (07:35)
[2022-10-28] MEDS: SODIUM CHLORIDE 0.9 % (FLUSH) 10 ML SYRINGE 5 ML IVF (07:36)
[2022-10-28 07:51] LABS: Slide Review Acceptable Review (Acceptable)
[2022-10-28 07:58] LABS: Immature Reticulocyte Fraction 15.1 % (3.0-15.9); Reticulocyte Hemoglobin Equivi 31.8 pg (29.0-35.0); Reticulocyte Percent 2.2 % (0.5-2.0); Reticulocytes Absolute 0.05 # (0.03-0.08)
[2022-10-28 08:57] VITALS: BP 137/73; BP 141/81; BP 150/66; PULSE 69; PULSE 71; PULSE 75
[2022-10-28 09:00] VITALS: BP 137/73; BP 141/81; BP 150/66; PULSE 69; PULSE 71; PULSE 75
[2022-10-28 10:09] LABS: Hemoglobin* 8.3 gm/dL (12.0-16.0)
[2022-10-28 10:57] VITALS: BP 141/81; PULSE 71; RESP 18; TEMP 36.7; O2SAT 93
--- NOTE | 2022-10-28 11:29 | PT.IPE ---
PT Inpatient Eval PT Inpatient Eval Start: 10/28/22 09:49 Freq: Status: Active Protocol: Document 10/28/22 09:50 ARR (Rec: 10/28/22 10:07 ARR [id number]) E-signed By Alisha Cross DPT Inpatient History/Precautions Rehabilitation Order Rehabilitation Order Evaluation and Treat Medical/Functional History Medical History Reviewed Yes: DM, HTN Test/lab results reviewed by therapist Yes: low Hgb 7.8 at eval Prior Level of Function -Lives at home with -Nursing assist 1x/month -Spouse does all errands and groceries. -Indep in dressing and showering -Pt notes she doesn't go out much due to leg weakness and overall fatigue -No longer drives -Sleeps in a maxwell bed, crawls into bed on hands/knees Current Condition Medical Diagnosis Comment nausea and vomiting Treatment Diagnosis Impaired Transfers,Impaired Range of Motion,Impaired Ambulation,Decreased [place] in ADLs Date of Onset 10/27/22 Social History Type of Dwelling Rambler Home Number of Stairs to Enter (Stairs) 5 Physical Barriers to Enter Home Railing Ascend Right,Railing Ascend Left Lives With: Spouse Bedroom location 1st floor Bathroom location 1st floor Bathroom Setup Walk In Shower Physical Barriers in Home Environment Level, No Step Mobility and ADL Aids Cane,Four Wheel Walker, Wheelchair Mobility and ADL Aids Other/Comments Does not use AD within home, uses martin for support. Uses 4WW in community. Orientation/Communication Patient Orientation Place,Time Communication Ability Able to verbalize needs Mental Status Alert & Oriented Physical Therapy IP Evaluation Subjective Subjective Pt reports being in the area visitng from [place] for her daughter's wedding yesterday on 10/27 but had onset of NV with a fall and didn't make it to the wedding. See PLOF above for further details. Notes in the past having had PT for strengthening. Owns a 4WW but doesn't use it within the home, prefers the martin. x1 fall in the last month yesterday. Pain Subjective Acute Pain Intensity 0 Pre Admit Mobility Pre Admit Bed Mobility Complete [place] Pre Admit Transfer Ability Complete [place] Pre Admit Ambulation Complete [place] Pre Admit Assistive Devices Owned Walker - 4 Wheels,Cane - Single Ended Upper Extremity Objective Overall Bilateral Upper Extremity ROM Within Functional Limits Lower Extremity Objective Overall Bilateral Lower Extremity ROM Within Functional Limits Overall Bilateral Lower Extremity Within Functional Limits Strength Tone, Posture, & Balance Static Sitting Balance Ability Good Dynamic Sitting Balance Ability Good Static Standing Balance Ability Good Dynamic Standing Balance Ability Fair Transfer Objective Rolling & Scooting Bed Mobility Standby Assistance Supine To Sit Standby Assistance Sit To Supine Standby Assistance Sit To & From Stand Ability Contact Guard Asssistance Chair Transfer Ability Contact Guard Asssistance Chair Transfer Technique Transfer Belt Bed Mobility/Transfer Comments Cues for proper hand placement during transfers for safety Gait Objective Ambulation Assistive Devices Walker - Front Wheeled Ambulation Ability Contact Guard Asssistance Ambulation Distance 1 x 50' Ambulation Tolerance Fair Factors Limiting Ambulation Balance,Weakness Gait Observation Objective Information Wide Based Gait Gait Comments Slow gait pattern used, no loss of balance Assessment, Goals, & Plan of Care Pt. Educated on Risk & Benefits of Yes Interventions Provided Pt. Agreed to Therapy Interventions Yes Provided During Session Inpatient PT Assessment Pt is an 87 y/o female who lives in [place], [place] visiting the area for her daughter's wedding on 10/27/22 with hosp admission secondary to NV with low HgB this date of 7.8. PLOF includes independence in showering, bathing, functional mobility, gait without AD at home but does have 4WW. Spouse takes care of loading unit tool setter and grocery shopping. Pt overall fatigued at evaluation, able to walk 50 ft with FWW and CGA . CGA with all transfers. Pt likely to benefit from HH PT upon return home to [place]. It does appear she may have had bouts of HH in the past, currently getting nursing cares 1x/month per pt report. Pt is an excellent candidate for skilled PT for progression of LE strength, ambulation, and improving safetly with transfers. Does have 5 steps to enter home. Functional Limitations/Problem List Weakness,Decreased ROM, Transfer Difficultiies,Gait Difficulties,Balance Deficits PT Recommendations Return to Prior Living Situation,Home Health P.T. Rehabilitation Potential Good Inpatient PT Goals/Functional Outcomes Within 2-3 days 1) Pt will ascend/descend x 5 steps with bilateral HR to enter/exit home 2) Pt will ambulate at least 80 ft with WW independently to show improved household mobility 3) Pt will be indep with sit/ standing transfers and bed mobility to return home PT Planned Interventions Evaluation,Therapeutic Exercise,Therapeutic Activities,Gait Training, Neuromuscular Re-Ed Treatment Plan Reviewed With Referral Source PT Frequency/Duration 1 Time A Day Complexity Complexity Moderate Treatment Minutes Untimed Code Treatment Minutes 20
--- NOTE | 2022-10-28 12:25 | PM.DS1 ---
DS: Providers Provider Time Seen by Provider: 11:08 Date Seen: 10/28/22 Date of admission: 10/27/22 13:46 Primary care physician: Not a Local Provider Admitting Clinician: Betty Dennis MD Consults: 10/27/22 16:47 Consult to Occupational Therapy [CONS] Routine Comment: Reason(s) for OT Consult:: Evaluate and Treat Any Restrictions?:: No Restrictions Consult to Physical Therapy [CONS] Routine Comment: Reason(s) for PT Consult:: Evaluate and Treat Any Restrictions?:: No Restrictions Attending Physician on discharge: Betty Dennis MD Date of Discharge: 10/28/22 DS: Diagnosis Discharge Diagnosis (1) Pre-syncope: Status: Suspected Problem details: EKGs and telemetry monitoring her unremarkable. (2) Vomiting: Status: Resolved Problem details: Cause for this is unknown. Symptoms have resolved after treatment by paramedics. No persistent nausea. No abdominal pain or tenderness. (3) Hyponatremia: Status: Acute Problem details: - Of unknown chronicity. May be worse today due to vomiting. Hydrochlorothiazide likely contributing as well. - hydrochlorothiazide has been discontinued. She is doing well on a fluid restriction which will be continued at home at 2000 mL per day. She will need outpatient follow-up for sodium check. (4) Asymptomatic bacteriuria: Status: Acute Problem details: - 10/28/22 patient states she knows when she gets a UTI and has not had any symptoms recently. Decision made not to treat asymptomatic bacturia. I instructed the patient to apply her provider if any symptoms of urinary tract infection arise. (5) Anemia: Status: Acute Problem details: - Normocytic anemia with borderline low iron saturation of 19%. Also neutropenia. Cause uncertain. Peripheral blood smear pending 10/28/22. - F/u with PCP to discuss further outpatient w/u including possible colonoscopy. Will also need goals of care discussion. (6) Leukopenia: Status: Acute Problem details: - Peripheral blood smear was obtained at this hospital and is still pending at the time of this dictation. Follow as an outpatient. May need further outpatient workup. (7) Cerebrovascular disease: Status: Acute Problem details: Remote history of TIA or stroke causing speech difficulties and left-sided weakness. Deficits resolved. (8) Hypothyroidism: Status: Chronic Problem details: - Appears to have excess replacement of levothyroxine with an elevated free T4 and suppressed TSH. - Decrease daily levothyroxine. Recheck in 1 month as outpatient. (9) Diabetes: Status: Chronic Problem details: Continue outpatient regimen with no changes (10) Hypertension: Status: Chronic Problem details: Amlodipine stopped as this might be causing lower extremity edema. Hydrochlorothiazide stopped for hyponatremia. Continue lisinopril. Increased furosemide dose. Can consider increasing lisinopril if blood pressures remain elevated verses adding another agent. (11) Heart failure: Status: Chronic Problem details: Details of this are unknown. Patient states this was diagnosed at a different ER, but her primary care provider has never mentioned it. (12) Edema: Status: Chronic Problem details: Stop amlodipine. Furosemide increased. Low-sodium diet, fluid restriction. Recommend daily lower extremity elevation. DS: Summary Hospital Course Hospital Course: This is an 87-year-old female who had been in her usual state of health when she had an episode of nausea and vomiting. She and her family tell me that she was somewhat dehydrated from recent traveling and events surrounding her daughter's wedding this weekend. She had nonbloody emesis just after eating breakfast and was profoundly weak with it. She may have had a brief period of unresponsiveness or syncopal event. When aroused by her daughter, it was thought that she had a brief episode of slurred speech and 911 was called. Evaluation in the emergency department showed no significant neurologic deficits or focal deficits. She does have a history of previous TIA or stroke many years ago. She has chronic weakness and poor gait for which she uses a walker or hold onto the martin at home and a wheelchair wall out and about. She was found to have anemia here, although the patient noted that this was not a new finding. Is not aware of any bleeding get has not had any melena or bright red blood per rectum. She thinks she had a colonoscopy 5 years ago that was normal. Additionally her white blood cell count is low. Most notably and what likely cause her symptoms his that she was found to have hyponatremia. This would be a new finding for her. Hydrochlorothiazide and lisinopril which she is on chronically at home, were held, she was started on a fluid restriction, given hypertonic saline, and admitted for monitoring. She did well and had adequate improvement of her sodium overnight without coming up too rapidly. Due to lower extremity edema I have also stopped her amlodipine. She has been started on furosemide instead of hydrochlorothiazide for lower extremity edema and possible history of heart failure. Discussed all of these things with the patient and her family in detail today. I have asked that she follow-up with her primary care provider to have a shared discussion about goals of care and to follow-up on these issues. Please see diagnoses above for further details. Time Spent with Patient Time attestation: Total time spent providing and/or coordinating discharge services: Exam Narrative: Exam Narrative: General: No acute distress. Awake, alert, oriented x3. Very hard of hearing. No pallor. No jaundice. Oropharynx: Clear. Mucous membranes moist. Cardiovascular: Regular rate and rhythm. No murmurs, gallops, or rubs. Respiratory: Clear to auscultation bilaterally. No wheezes or crackles. Abdomen: Bowel sounds present. Soft, nondistended, nontender. Extremities: 1+ bilateral lower extremity edema. Const: Vital Signs, click to edit/add: Vital Signs - 24 hr 10/27/22 12:45 10/27/22 12:46 10/27/22 13:00 Temperature Pulse Rate 78 74 81 Pulse Rate [Left R adial] Pulse Rate [orthos tatic lying Pulse Oximeter] Pulse Rate [orthos tatic sitting Puls e Oximeter] Pulse Rate [orthos tatic standing Pul se Oximeter] Respiratory Rate Blood Pressure 134/57 L Blood Pressure [Le ft Arm] Blood Pressure [or thostatic lying Le ft Arm] Blood Pressure [or thostatic sitting Left Arm] Blood Pressure [or thostatic standing Left Arm] Pulse Oximetry 98 [facility] [address] [facility] 10/27/22 13:02 10/27/22 13:15 10/27/22 13:30 Temperature Pulse Rate 80 78 80 Pulse Rate [Left R adial] Pulse Rate [orthos tatic lying Pulse Oximeter] Pulse Rate [orthos tatic sitting Puls e Oximeter] Pulse Rate [orthos tatic standing Pul se Oximeter] Respiratory Rate Blood Pressure 145/94 H Blood Pressure [Le ft Arm] Blood Pressure [or thostatic lying Le ft Arm] Blood Pressure [or thostatic sitting Left Arm] Blood Pressure [or thostatic standing Left Arm] Pulse Oximetry 98 100 [facility] 10/27/22 13:32 10/27/22 13:36 10/27/22 13:45 Temperature Pulse Rate 79 81 Pulse Rate [Left R adial] Pulse Rate [orthos tatic lying Pulse Oximeter] Pulse Rate [orthos tatic sitting Puls e Oximeter] Pulse Rate [orthos tatic standing Pul se Oximeter] Respiratory Rate Blood Pressure 158/66 H 160/67 H Blood Pressure [Le ft Arm] Blood Pressure [or thostatic lying Le ft Arm] Blood Pressure [or thostatic sitting Left Arm] Blood Pressure [or thostatic standing Left Arm] Pulse Oximetry 99 94 Oxygen Delivery Me thod 10/27/22 14:14 10/27/22 19:00 10/27/22 23:00 Temperature 97.2 F L 97.9 F Pulse Rate Pulse Rate [Left R adial] 88 90 Pulse Rate [orthos tatic lying Pulse Oximeter] Pulse Rate [orthos tatic sitting Puls e Oximeter] Pulse Rate [orthos tatic standing Pul se Oximeter] Respiratory Rate 18 18 18 Blood Pressure Blood Pressure [Le ft Arm] 134/52 L 132/69 Blood Pressure [or thostatic lying Le ft Arm] Blood Pressure [or thostatic sitting Left Arm] Blood Pressure [or thostatic standing Left Arm] Pulse Oximetry 97 98 Oxygen Delivery Me thod Room Air Room Air 10/27/22 23:00 10/28/22 03:00 10/28/22 07:00 Temperature 98 F 97.9 F Pulse Rate Pulse Rate [Left R adial] 81 73 73 Pulse Rate [orthos tatic lying Pulse Oximeter] Pulse Rate [orthos tatic sitting Puls e Oximeter] Pulse Rate [orthos tatic standing Pul se Oximeter] Respiratory Rate 18 18 18 Blood Pressure Blood Pressure [Le ft Arm] 139/93 H 105/53 L Blood Pressure [or thostatic lying Le ft Arm] Blood Pressure [or thostatic sitting Left Arm] Blood Pressure [or thostatic standing Left Arm] Pulse Oximetry 98 93 Oxygen Delivery Me thod Room Air Room Air 10/28/22 07:00 10/28/22 08:57 10/28/22 09:00 Temperature 97.7 F Pulse Rate Pulse Rate [Left R adial] 73 Pulse Rate [orthos tatic lying Pulse Oximeter] 69 69 Pulse Rate [orthos tatic sitting Puls e Oximeter] 71 71 Pulse Rate [orthos tatic standing Pul se Oximeter] 75 75 Respiratory Rate 18 Blood Pressure Blood Pressure [Le ft Arm] 150/66 H Blood Pressure [or thostatic lying Le ft Arm] 150/66 H 150/66 H Blood Pressure [or thostatic sitting Left Arm] 141/81 H 141/81 H Blood Pressure [or thostatic standing Left Arm] 137/73 137/73 Pulse Oximetry 93 Oxygen Delivery Me thod Room Air 10/28/22 10:57 Temperature 98.1 F Pulse Rate Pulse Rate [Left R adial] 71 Pulse Rate [orthos tatic lying Pulse Oximeter] Pulse Rate [orthos tatic sitting Puls e Oximeter] Pulse Rate [orthos tatic standing Pul se Oximeter] Respiratory Rate 18 Blood Pressure Blood Pressure [Le ft Arm] 141/81 H Blood Pressure [or thostatic lying Le ft Arm] Blood Pressure [or thostatic sitting Left Arm] Blood Pressure [or thostatic standing Left Arm] Pulse Oximetry 93 Oxygen Delivery Me thod Room Air DS: Data Data Completed and Pending Completed studies during hospitalization: 10/27/2022 EKG: Normal sinus rhythm, heart rate 74 beats per minute, normal EKG. 10/28/2022 EKG: Normal sinus rhythm, 69 beats per minute, normal EKG. Ordering Physician: Nichelle Pulliam M.D. Date of Service: 10/27/22 Procedure(s): CT head/brain wo con Accession Number(s): [id number] cc: Nichelle Pulliam M.D.; Provider,Not a Local~ For Patients: As a result of the Cures Act, medical imaging exams and procedure reports are released immediately into your electronic medical record. You may view this report before your referring provider. If you have questions, please contact your health care provider. INDICATION: Fall. Syncope. COMPARISON: None available. TECHNIQUE: Noncontrast CT head. FINDINGS: Moderate generalized volume loss. Patchy low-attenuation change within the white matter consistent with chronic deep white matter small ischemic changes. No acute intracranial hemorrhage, acute infarct, mass effect, or fracture. No midline shift. Compensatory mild dilatation of ventricular system. Normal calvarium and skull base. Visualized paranasal sinuses and mastoid air cells are clear. Intracranial carotid artery calcifications. Normal orbits bilaterally. IMPRESSION: 1. No acute intracranial abnormality. 2. Moderate generalized volume loss. Chronic deep white matter small vessel ischemic changes Please note that all CT scans at this facility use dose modulation, iterative reconstruction, and/or weight-based dosing when appropriate to reduce radiation dose to as low as reasonably achievable. Dictated by Carlos Lyn MD @ 10/27/2022 1:33:20 PM (Electronically Signed) Ordering Physician: Nichelle Pulliam M.D. Date of Service: 10/27/22 Procedure(s): XR chest 2V Accession Number(s): [id number] cc: Nichelle Pulliam M.D.; Provider,Not a Local~ For Patients: As a result of the Cures Act, medical imaging exams and procedure reports are released immediately into your electronic medical record. You may view this report before your referring provider. If you have questions, please contact your health care provider. INDICATION: Fall, syncope INDICATION: Syncope, fall. TECHNIQUE: Chest 2 views. COMPARISON: None FINDINGS: Cardiovascular and mediastinum: Heart size and vasculature are normal in caliber and appearance. Mediastinum is within normal limits. Lungs and pleural spaces: Lungs are clear. No sign of infiltrate or mass. No sign of pleural effusion. No pneumothorax. 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 IMPRESSION: Lungs are clear. Dictated by Rigo Cortez MD @ 10/27/2022 1:23:22 PM Dictated by: Rigo Cortez MD @ 10/27/2022 13:23:31 (Electronically Signed) Labs on day of discharge: Labs from last 24 hours 10/28/22 10/28/22 10/27/22 09:57 05:37 19:55 WBC 2.48 L RBC 2.52 L Hgb 8.3 L 7.8 L* 8.4 L Hct 23.8 L MCV 94 MCH 31 MCHC 33 RDW Coeff of Noah 15.7 H Plt Count 273 Neut % (Auto) 37.9 L Lymph % (Auto) 40.7 [place] % (Auto) 13.7 H Eos % (Auto) 6.5 Baso % (Auto) 0.8 Neut # (Auto) 0.90 L Lymph # (Auto) 1.00 [place] # (Auto) 0.30 Eos # (Auto) 0.20 Baso # (Auto) 0.00 Abs Immat Gran (auto) 0.00 Imm/Tot Granulo (auto) 0.4 Diff Slide Review Acceptable Review Peripher Smr Path Cons Pending Absolute Retic 0.05 Percent Retic 2.2 H Immature Retic Fraction 15.1 Retic Hgb Equivalent 31.8 INR APTT D-Dimer Quant (PE/DVT) Sodium 129 L 128 L Potassium 4.2 Chloride 102 Carbon Dioxide 22 BUN 17 Creatinine 0.8 Estimated Creat Clear 38.50 Estimated GFR 72 Glucose 91 Hemoglobin A1c Lactate Calcium 8.9 Iron TIBC % Saturation Total Bilirubin Direct Bilirubin AST ALT Alkaline Phosphatase C-Reactive Protein Total Protein Albumin TSH Free T4 Urine Color Urine Appearance Urine pH Ur Specific [place] Urine Protein Urine Glucose (UA) Urine Ketones Urine Blood Urine Nitrite Urine Bilirubin Urine Urobilinogen Ur Leukocyte Esterase Urine RBC Urine WBC Ur Squamous Epith Cells Amorphous Sediment Urine Bacteria Stool Occult Blood SARS-CoV-2 (PCR) Lab Acknowledgement Blood Type Antibody Screen 10/27/22 10/27/22 10/27/22 15:23 14:48 13:32 WBC RBC Hgb Hct MCV MCH MCHC RDW Coeff of Noah Plt Count Neut % (Auto) Lymph % (Auto) [place] % (Auto) Eos % (Auto) Baso % (Auto) Neut # (Auto) Lymph # (Auto) [place] # (Auto) Eos # (Auto) Baso # (Auto) Abs Immat Gran (auto) Imm/Tot Granulo (auto) Diff Slide Review Peripher Smr Path Cons Absolute Retic Percent Retic Immature Retic Fraction Retic Hgb Equivalent INR APTT D-Dimer Quant (PE/DVT) Sodium 127 L Potassium Chloride Carbon Dioxide BUN Creatinine Estimated Creat Clear Estimated GFR Glucose Hemoglobin A1c Lactate 1.5 Calcium Iron TIBC % Saturation Total Bilirubin Direct Bilirubin AST ALT Alkaline Phosphatase C-Reactive Protein Total Protein Albumin TSH Free T4 Urine Color Yellow Urine Appearance Clear Urine pH 7.0 Ur Specific [place] 1.015 Urine Protein Negative Urine Glucose (UA) Negative Urine Ketones Negative Urine Blood Negative Urine Nitrite Negative Urine Bilirubin Negative Urine Urobilinogen 0.2 Ur Leukocyte Esterase Negative Urine RBC 0-2 Urine WBC 0-2 Ur Squamous Epith Cells None Amorphous Sediment Few A Urine Bacteria Few A Stool Occult Blood Negative SARS-CoV-2 (PCR) Lab Acknowledgement Test Added Blood Type A Positive Antibody Screen NEGATIVE 10/27/22 10/27/22 11:56 11:41 WBC RBC Hgb Hct MCV MCH MCHC RDW Coeff of Noah Plt Count Neut % (Auto) Lymph % (Auto) [place] % (Auto) Eos % (Auto) Baso % (Auto) Neut # (Auto) Lymph # (Auto) [place] # (Auto) Eos # (Auto) Baso # (Auto) Abs Immat Gran (auto) Imm/Tot Granulo (auto) Diff Slide Review Peripher Smr Path Cons Absolute Retic Percent Retic Immature Retic Fraction Retic Hgb Equivalent INR 0.95 APTT 27 D-Dimer Quant (PE/DVT) 0.69 H Sodium 122 L* Potassium 4.8 Chloride 95 L Carbon Dioxide 17 L BUN 21 Creatinine 0.9 Estimated Creat Clear 38.50 Estimated GFR 63 Glucose 117 H Hemoglobin A1c 6.39 H Lactate Calcium 9.0 Iron 91 TIBC 475 % Saturation 19 L Total Bilirubin 0.3 Direct Bilirubin 0.0 AST 27 ALT 19 Alkaline Phosphatase 63 C-Reactive Protein < 0.5 L Total Protein 7.2 Albumin 3.9 TSH < 0.015 L Free T4 2.31 H Urine Color Urine Appearance Urine pH Ur Specific [place] Urine Protein Urine Glucose (UA) Urine Ketones Urine Blood Urine Nitrite Urine Bilirubin Urine Urobilinogen Ur Leukocyte Esterase Urine RBC Urine WBC Ur Squamous Epith Cells Amorphous Sediment Urine Bacteria Stool Occult Blood SARS-CoV-2 (PCR) Negative SARS-CoV-2 Lab Acknowledgement Blood Type Antibody Screen Preliminary micro results at discharge 10/27/22 Unknown Urine Culture - Preliminary Urine,Clean Catch Gram negative yunier Discharge Plan Discharge Disposition: Home, Self-Care Date of Admission: 10/27/22 13:46 Attending Provider on Discharge: Betty Dennis Primary Care Provider: Provider,Not a Local Condition: Improved Anticipated Discharge Date/Time: 10/28/22 12:29 Discharge Medications: New melatonin 3 mg Tablet 3 - 6 mg PO HS Qty: 60 0RF furosemide 20 mg Tablet 20 mg PO DAILY Qty: 30 0RF lisinopril 10 mg tablet 10 mg PO DAILY Qty: 30 2RF levothyroxine 37.5 mcg capsule 37.5 mcg PO DAILY Qty: 30 0RF Continued metformin 500 mg tablet 500 mg PO BIDWM loperamide 2 mg capsule 2 mg PO QID PRN (Reason: diarrhea) cetirizine 10 mg tablet 10 mg PO DAILY aspirin 81 mg tablet,delayed release (DR/EC) 81 mg PO HS benzonatate 100 mg capsule 100 mg PO 3XD PRN (Reason: cough) ibuprofen 400 mg tablet 400 mg PO 3XD PRN (Reason: pain) gabapentin 300 mg capsule 600 mg PO BID omeprazole 20 mg capsule,delayed release(DR/EC) 20 mg PO DAILY cholecalciferol (vitamin D3) [Vitamin D3] 50 mcg (2,000 unit) capsule 50 mcg PO DAILY cyanocobalamin (vitamin B-12) 1,000 mcg tablet 1,000 mcg PO DAILY fluticasone propion-salmeterol [Advair Diskus] 250-50 mcg/dose blister with device 1 inh inhalation HS Rx Instructions: STATES SHE ONLY TAKES IN THE EVENING Discontinued amlodipine 5 mg tablet 5 mg PO DAILY levothyroxine 88 mcg tablet 88 mcg PO DAILY furosemide 20 mg tablet 10 mg PO DAILY lisinopril-hydrochlorothiazide 10-12.5 mg tablet 1 tab PO DAILY diphenhydramine HCl [Allergy] 25 mg tablet 50 mg PO HS diphenhydramine-acetaminophen [Tylenol PM Extra Strength] 25-500 mg tablet 2 tab PO QHS Discharge Orders: Discharge Order (Routine); Ordered 10/28/22 Ordered By: Betty Dennis Patient Education: Melatonin (By mouth), Hyponatremia (DC), Hypothyroidism (DC), Anemia (DC) Additional Instructions: Follow up with your primary care provider in about a week. You will need follow up of blood pressure, sodium, potassium and renal function. With your doctor, discuss further work up of anemia and low white blood cells. Activity Level: No Restrictions Discharge Diet: Regular and 2000 ml Fluid Restriction Follow Up Appointments: Provider,Not a Local [Primary Care Provider] - Forms: [employer] Info Instructions
--- NOTE | 2022-10-28 15:19 | PC.NURSE ---
Patient's discharge instructions were discussed with the patient, spouse and family member present. All questions were answered and forms were signed. Pt was given the discharge summary and instructed to bring along to the appointment with her primary care provider that will be scheduled at a later date per the patient. IV removed in right AC and left wrist. Escorted to front entrance via wheelchair and nursing staff.
== END 2022-10-28 13:07 | disposition home or self-care (01) ==
LOC: ED 12:21 → MEDSURG 13:47
PROVIDERS: Family Medicine; Admitting Provider Family Medicine; Emergency Provider Emergency Medicine; Visit Provider Family Medicine
DX: E87.1 Hypo-osmolality and hyponatremia (principal); R94.6 Abnormal results of thyroid function studies; R82.71 Bacteriuria; D64.9 Anemia, unspecified; E61.1 Iron deficiency; R05.9 Cough, unspecified; U09.9 Post COVID-19 condition, unspecified; D70.9 Neutropenia, unspecified; E03.9 Hypothyroidism, unspecified; I67.9 Cerebrovascular disease, unspecified; R74.02 Elevation of levels of lactic acid dehydrogenase [LDH]; I69.854 Hemiplegia and hemiparesis following other cerebrovascular disease affecting left non-dominant side; I69.828 Other speech and language deficits following other cerebrovascular disease; E11.9 Type 2 diabetes mellitus without complications; I50.9 Heart failure, unspecified; R60.9 Edema, unspecified; R55 Syncope and collapse; I11.0 Hypertensive heart disease with heart failure; R53.1 Weakness; W19.XXXA Unspecified fall, initial encounter; R26.9 Unspecified abnormalities of gait and mobility; K21.9 Gastro-esophageal reflux disease without esophagitis; R53.83 Other fatigue; R11.10 Vomiting, unspecified; R11.0 Nausea; F17.200 Nicotine dependence, unspecified, uncomplicated; Z79.84 Long term (current) use of oral hypoglycemic drugs; Z79.82 Long term (current) use of aspirin; Z90.49 Acquired absence of other specified parts of digestive tract; Z98.890 Other specified postprocedural states; Z20.822 Contact with and (suspected) exposure to COVID-19
CPT/HCPCS: 36415; 70450; 71046; 80048; 80076; 81001; 82270; 83036; 83540; 83550; 83605; 84295; 84439; 84443; 84484; 85018; 85025; 85045; 85379; 85610; 85730; 86140; 86850; 86900; 86901; 87086; 87186; 87635; 93005; 94761; 96360; 96361; 96372; 97110; 97162; 99284; 99285; A9270; G0378; J1650; J7030; J7131